=== PATIENT | male | born 1975 | race Hispanic/Latino ===

== ENCOUNTER 2018-01-24 10:44 | Day surgery (SDC) | payer OTHER ==
[2018-01-22 13:26] LABS: Absolute Lymphocytes (CBC) 1.1 K/uL (0.7-4.9); Absolute Monocytes 0.8 K/uL (0.1-1.3); Absolute Neutrophil 5.1 K/uL (1.8-8.0); Basophils % 0.7 % (0-1.3); Eosinophils % 2.2 % (0-4.4); Hematocrit 53.1 % (39.6-49.0); Lymphocytes % 15.7 % (15.3-44.8); MCH 30.5 pg (27.0-35.0); MCV 90.5 fL (80-100); MPV 9.7 fL (7.6-11.3); Monocytes % 10.6 % (3.3-12.3); RBC Red Blood Cell Count 5.87 M/uL (4.33-5.43)
[2018-01-22 13:28] LABS: Protime INR 0.93
[2018-01-22 13:37] LABS: Urine Appearance CLEAR; Urine Bilirubin NEGATIVE (NEG); Urine Blood NEGATIVE (NEG); Urine Color YELLOW; Urine Glucose NEGATIVE (NEG); Urine Protein NEGATIVE (NEG); Urine Urobilinogen 0.2 mg/dL (0.2-1.0)
--- NOTE | 2018-01-22 13:46 | RAD REPORT ---
EXAM DESCRIPTION: RAD - Chest Pa And Lat (2 Views) - 01/22/2018 1:09 pm CLINICAL HISTORY: Preop chest, pending urology procedure COMPARISON: November 2010 TECHNIQUE: PA and lateral views of the chest were obtained. FINDINGS: The lungs are clear. Heart size is normal and central vasculature is within normal limit s. No pleural effusion or pneumothorax seen. No acute bony finding noted. No aortic abnormality. No significant changes from the prior study. IMPRESSION: No acute cardiopulmonary process.
[2018-01-22 13:48] LABS: Urine Microscopic Reflex NO UMIC
[2018-01-22 13:50] LABS: Potassium 4.2 mEq/L (3.6-5.0)
--- NOTE | 2018-01-22 13:51 | EKG ---
Test Date: 2018-01-22 Test Time: 12:54:12 Side Guider: SAVANA MEASUREMENT RESULTS: Intervals: Rate: 84 WA: 140 QRSD: 92 QT: 354 QTc: 418 [place]: P: 49 WA: 140 QRS: 81 T: 14 INTERPRETIVE STATEMENTS: Normal sinus rhythm Nonspecific T wave abnormality Abnormal ECG Compared to ECG 11/03/2010 09:11:16 T-wave abnormality now present Sinus bradycardia no longer present Electronically Signed On 01-22-18 13:50:41 CDT by Nitin Ferris
[2018-01-24] MEDS ORDERED: Ringers Lactate 1,000 ML IV ONE (10:50)
[2018-01-24] MEDS ORDERED: GENTAMICIN 80 MG/100 ML BAG 0 MG/0 ML BAG IV ONE (10:51)
[2018-01-24] MEDS ORDERED: CEFAZOLIN/SWI 1gm 1 GM/10 ML SYR ONE (11:38)
[2018-01-24] MEDS ORDERED: BACITRACIN OINTMENT 15 GM TUBE TOP ONE (11:55)
[2018-01-24] MEDS ORDERED: BUPIVACAINE 0.25% PF 10 ML VIAL ONE (11:55)
[2018-01-24] MEDS ORDERED: LIDOCAINE 1% 20 ML MDV ONE (11:56)
[2018-01-24] MEDS ORDERED: MIDAZOLAM HCL 2 MG/2 ML INJ ONE (12:12)
[2018-01-24] MEDS ORDERED: PROPOFOL 200 MG/20 ML VIAL IV ONE ×2 (12:12→12:55)
[2018-01-24] MEDS ORDERED: FENTANYL CITR 100 MCG/2 ML ONE (12:13)
[2018-01-24] MEDS ORDERED: LIDOCAINE 2% MPF 5 ML VIAL ONE (12:13)
[2018-01-24] MEDS ORDERED: ONDANSETRON 4 MG/2 ML VIAL ONE (12:43)
[2018-01-24] MEDS ORDERED: DEXAMETHASONE 10 MG/ML VIAL ONE (12:43)
== END 2018-01-24 15:15 | disposition home or self-care (01) ==
LOC: OR 10:44
PROVIDERS: ATTEND Urology
PROC: 0VBQ0ZZ Excision of Bilateral Vas Deferens, Open Approach (ICD-10-PCS; principal; 2018-01-24 12:00)
DX: Z30.2 Encounter for sterilization (principal); N20.2 Calculus of kidney with calculus of ureter
CPT/HCPCS: 36415; 71046; 80048; 81003; 85025; 85610; 85730; 87086; 87088; 93005; J0690; J1100; J1580; J2250; J2405; J3010